=== PATIENT | female | born 1960 | race Caucasian/White ===

== ENCOUNTER 2020-03-30 14:40 | Emergency (ER) | payer MEDICARE, MEDICAID, SELFPAY ==
[2020-03-30 14:48] VITALS: BP 149/91; PULSE 78; RESP 16; TEMP 36.2; O2SAT 99
--- NOTE | 2020-03-30 15:22 | ED.SKABFB ---
HPI - Skin/Abscess/Foreign Bdy General Chief complaint: Skin/Abscess/Foreign Body Stated complaint: rash on face/chest Related Data Home Medications Medication Instructions Recorded Confirmed alprazolam 0.5 mg PO BID PRN 03/30/20 03/30/20 atorvastatin 20 mg PO DAILY 03/30/20 03/30/20 biotin 5 mg PO DAILY 03/30/20 03/30/20 escitalopram oxalate 20 mg PO DAILY 03/30/20 03/30/20 famotidine 20 mg PO DAILY 03/30/20 03/30/20 fenofibrate 40 mg PO DAILY 03/30/20 03/30/20 levothyroxine 100 mcg PO DAILY 03/30/20 03/30/20 meloxicam 15 mg PO DAILY 03/30/20 03/30/20 verapamil 40 mg PO DAILY 03/30/20 03/30/20 Allergies Allergy/AdvReac Type Severity Reaction Status Date / Time ondansetron Allergy Intermediate Vomiting Verified 03/30/20 15:02 Sulfa (Sulfonamide Allergy Mild Hives Verified 03/30/20 15:02 Antibiotics) sulfanilamide Allergy Unknown Hives Verified 03/30/20 15:02 [facility] Family History Family History (Updated 05/29/14 @ 07:13 by DOCTOR UNKNOWN) Mother Depression Hypertension Family history of arthritis Family history of chronic obstructive pulmonary disease Sibling Depression Hypertension Family history of sleep apnea Father Family history of arthritis Family history of Parkinson's disease Family history of heart disease in male family member before age 55 Social History Social History Alcohol intake: current Exam Narrative: Exam Narrative: GENERAL: Well-appearing, well-nourished, and in no acute distress. HEAD: Normocephalic, atraumatic. EYES: EOMI. No redness or drainage. Conjunctivae normal. ENT: Mucous membranes pink and moist. NECK: Normal AROM. Supple. No lymphadenopathy. CHEST: No respiratory distress. EXTREMITIES: Normal range of motion. No edema. SKIN: Warm, dry. Capillary refill normal. Normal skin turgor. Mildly erythematous crusting circumoral rash with small amount of honey crusting. Patient also has faintly pink papular rash to bilteral lateral abdomen and under both breast, and in the groin folds. No induration or drainage. NEURO: No focal deficits. Alert and oriented x3. Gait steady. PSYCH: Normal affect. No signs of depression or anxiety. Course Vital Signs Vital signs: Vital Signs Temperature 97.2 F L 03/30/20 14:48 Pulse Rate 78 03/30/20 14:48 Respiratory Rate 16 03/30/20 14:48 Blood Pressure 149/91 H 03/30/20 14:48 Pulse Oximetry 99 03/30/20 14:48 Temperature 97.2 F L 03/30/20 14:48 Pulse Rate 78 03/30/20 14:48 Respiratory Rate 16 03/30/20 14:48 Blood Pressure 149/91 H 03/30/20 14:48 Pulse Oximetry 99 03/30/20 14:48 Reviewed. Pt has been instructed to follow up with her PCP regarding her elevated blood pressure today. MDM - Skin/Abscess/Foreign Bdy Differential Diagnosis Differential diagnosis: Likely abscess of skin or subcutaneous tissue, urticaria, cellulitis, eczema, impetigo and contact dermatitis Critical Care Time Critical Care Time Critical Care Time: No Discharge Plan Discharge Clinical Impression: Impetigo, Dermatitis Patient Disposition: Home, Self-Care Condition: Stable Instructions: Impetigo (DC), Dermatitis (ED) Additional Instructions: Please use the mupirocin around your mouth. Do not clean with peroxide or alcohol. Do not apply any Chapstick or lipstick. Please use a steroid cream on the rash on your abdomen. Follow-up with your doctor in 1 week if symptoms are not improving. Your blood pressure was elevated above 120/80 today at Urgent Care. This puts you above the threshold for follow up. Please schedule a followup visit with your personal physician as soon as possible, for further evaluation and treatment. Even blood pressure exceeding 120/80 may indicate pre-hypertension. Patient Language: [place] Prescriptions: New mupirocin 2 % ointment 1 applic TOPICAL BID Qty: 22 RF: 0 triamcinolone acetonide 0.1 % ointment 1 applic TOPICAL BID Qty: 30 RF: 0 No A
== END 2020-03-30 15:30 | disposition home or self-care (01) ==
PROVIDERS: Emergency Provider Nurse Practitioner; PCP Internal Medicine
DX: L01.00 Impetigo, unspecified (principal); L25.9 Unspecified contact dermatitis, unspecified cause; E78.00 Pure hypercholesterolemia, unspecified; I10 Essential (primary) hypertension
CPT/HCPCS: 99213; G0463

== ENCOUNTER → 2020-07-28 09:32 | Outpatient (CLI) | payer MEDICARE, MEDICAID, SELFPAY ==
--- NOTE | ~2020-07-28 | MMUS_ITS ---
EXAMINATION: [facility] diagnostic [facility] w francoise, US breast RT limited HISTORY: Right breast pain TECHNIQUE: Craniocaudal, mediolateral, and mediolateral oblique 3-D tomosynthesis images of the breas ts were performed and synthetic 2-D images were generated. Spot compression views of the breast are a lso obtained. CAD analysis was submitted and interpreted. High resolution limited right breast ultras ound was performed. COMPARISON: 12/11/2017, 10/31/2015, 02/10/2014 BREAST PARENCHYMAL COMPOSITION: There are scattered areas of fibroglandular density. FINDINGS: MAMMOGRAPHIC FINDINGS: Right breast: There is an asymmetry in the middle third of the lower inner breast at the 5:00 locatio n 9 cm from the nipple which has an appearance similar to prior mammograms. Left breast: There is no evidence of suspicious mass, calcification, or architectural distortion to suggest malignancy. There has been no suspicious interval change. ULTRASOUND: There is a questionable 5 mm hypoechoic mass at the 6:00 location 3 cm from the nipple. IMPRESSION: 1. No specific mammographic or sonographic correlate is identified for the patient's right breast fernando n Further evaluation at this time should be based on clinical assessment. Continued follow-up physica l examination is recommended. 2. Possible sonographically detected right breast mass without mammographic correlate. Recommend foll ow-up right diagnostic mammogram and ultrasound in six months. BI-RADS category 3, probably benign findings. Reviewed, dictated and finalized at location A. IMPRESSION: 1. No specific mammographic or sonographic correlate is identified for the eros ent's right breast pain Further evaluation at this time should be based on clin ical assessment. Continued follow-up physical examination is recommended. 2. Possible sonographically detected right breast mass without mammographic cor relate. Recommend follow-up right diagnostic mammogram and ultrasound in six mo nths. BI-RADS category 3, probably benign findings.
== END ==
PROVIDERS: PCP Internal Medicine; Visit Provider Advanced Practice Midwife
DX: N64.4 Mastodynia (principal); R92.8 Other abnormal and inconclusive findings on diagnostic imaging of breast
CPT/HCPCS: 76642; 77062; 77066; G0279